=== PATIENT | male | born 1960 | race Caucasian/White ===

== ENCOUNTER 2024-10-29 13:20 | Emergency (ER) | payer BC, SELFPAY ==
[2024-10-29 13:22] VITALS: BP 114/76; PULSE 107; RESP 18; TEMP 36.9; O2SAT 97; BMI 21.3
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
== END 2024-10-29 16:05 | disposition home or self-care (01) ==
PROVIDERS: Emergency Provider Emergency Medicine
DX: E11.40 Type 2 diabetes mellitus with diabetic neuropathy, unspecified (principal); L60.0 Ingrowing nail
CPT/HCPCS: 99283; 99284